=== PATIENT | male | born 1970 | race African-American/Black ===

== ENCOUNTER 2020-08-23 11:08 | Emergency (ER) | payer OTHER ==
--- OUTSIDE RECORDS SUMMARY | 2020-08-23 11:13 | XMS REPORT | Continuity of Care Document ---
:1970 Author Organization [facility] t Address [address] [place] [address] Care Team Providers Name Role Phone Natalie Woods Attending Clinician Problems This patient has no known problems. Allergies, Adverse Reactions, Alerts This patient has no known allergies or adverse reactions. Social History Smoking Status Start Date Stop Date Source Social History [facility] Medications This patient has no known medications. Vital Signs Vital Name Observation Time Observation Value Comments Source Temperature Oral (F) 2019-10-12 14:24:00 97.9 F [facility] Height 2019-10-12 14:24:00 165.1 cm [facility] Weight 2019-10-12 14:24:00 [facility] BMI Calculated 2019-10-12 14:24:00 Memkamille al [place] Systolic (mm Hg) 2019-10-12 14:24:00 Ramana rial [place] Diastolic (mm Hg) 2019-10-12 14:24:00 Mem orial [place] Heart Rate 2019-10-12 14:24:00 [facility] Procedures Procedure Date / Time Performed Performing Clinician Sourc e Back fusion [facility] Encounters Start End Encounter Admission Attending Care Care Encounter Source Date/Time Date/Time Type Type Clinicians Facility Department ID 2019-10-22 2019-10-23 Outpatient [facility] [id number] 09:00:34 09:00:34 01 2019-10-12 2019-10-12 Outpatient JOVANNA Woods [facility] [id number] 08:30:00 23:59:59 Natalie Parra 2019-05-28 2019-05-28 Emergency E [id number] [facility] 00:56:00 00:56:00 Results This patient has no known results.
--- NOTE | 2020-08-23 13:14 | EDPHYS ---
Physician Documentation [facility] Name: James Langford Jr Age: 50 yrs Sex: Male : 1970 Arrival Date: 08/23/2020 Time: 11:12 Bed Treatment Private MD: ED Physician Jose Rafael Daniels HPI: 08/23 13:11 This 50 yrs old Black Male presents to ER via Ambulatory with complaints of Arm Pain. kb 13:11 The patient or guardian complains of pain, that is acute. The complaints affect the kb posterior aspect of left shoulder and left tricep. Context: The problem was sustained at home, resulted from unknown cause. Onset: The symptoms/episode began/occurred yesterday. Treatment prior to arrival includes: no previous treatment. Modifying factors: The symptoms are alleviated by nothing. the symptoms are aggravated by movement of neck. Associated signs and symptoms: Pertinent positives: pain, tingling, Pertinent negatives: decreased range of motion, deformity, erythema, fever, nausea, numbness, swelling, vomiting, warmth, weakness. Severity of symptoms: At their worst the symptoms were moderate, in the emergency department the symptoms are unchanged. The patient has not experienced similar symptoms in the past. The patient has not recently seen a physician. Pt reports he felt a little pain in left posterior neck and left arm yesterday. Woke up this morning with worsening pain and intermittent tingling. States the pain is worse when he turns his neck to the left, pain starts at neck and radiates down arm. Denies injury, decreased ROM, fever, chest pain, shortness of breath.. Historical: - Allergies: 11:25 No Known Allergies; ll1 - PMHx: 11:25 None; ll1 - PSHx: 11:25 back SX x 4; ll1 - Immunization history:: Client reports having NOT received the Covid vaccine. Flu vaccine is up to date. - Social history:: Smoking status: Patient denies any tobacco usage or history of. ROS: 13:09 Constitutional: Negative for fever, chills, and weight loss. kb 13:09 Neck: Positive for pain with movement, tenderness, of the left posterior aspect of neck. 13:09 MS/extremity: Positive for pain, tingling, of the left arm. 13:09 All other systems are negative. Exam: 13:10 Constitutional: This is a well developed, well nourished patient who is awake, alert, kb and in no acute distress. Head/Face: Normocephalic, atraumatic. ENT: Moist Mucous membranes Respiratory: Respirations even and unlabored. No increased work of breathing, no retractions or nasal flaring. Skin: Warm, dry with normal turgor. Normal color. MS/ Extremity: Pulses equal, no cyanosis. Neurovascular intact. Full, normal range of motion. Neuro: Awake and alert, GCS 15, oriented to person, place, time, and situation. Moves all extremities. Normal gait. Psych: Awake, alert, with orientation to person, place and time. Behavior, mood, and affect are within normal limits. 13:10 Neck: External neck: tenderness, that is mild, of the left posterior aspect of neck, C-spine: appears grossly normal, ROM/movement: pain, that is mild, with rotation to the left, Meningeal signs: are not present, nuchal rigidity, is not appreciated. Vital Signs: 11:24 Pulse 68; Resp 16; Temp 97.8; Pulse Ox 98% ; Weight 63.5 kg; Height 5 ft. 5 in. (165.10 ll1 cm); Pain 7/10; 11:24 BP 118 / 77; ll1 11:24 Body Mass Index 23.30 (63.50 kg, 165.10 cm) ll1 MDM: 13:01 Patient medically screened. kb 13:09 Data reviewed: vital signs, nurses notes. Data interpreted: Pulse oximetry: on room air kb is 98 %. Interpretation: normal. Counseling: I had a detailed discussion with the patient and/or guardian regarding: the historical points, exam findings, and any diagnostic results supporting the discharge/admit diagnosis, the need for outpatient follow up, a family practitioner, to return to the emergency department if symptoms worsen or persist or if there are any questions or concerns that arise at home. Administered Medications: 13:24 Drug: SOLU-Medrol (methylPREDNISolone sodium succinate) 125 mg Route: IM; Site: left ss gluteus; 13:56 Follow up: Response: No adverse reaction; Pain is decreased ss Disposition: 15:04 Co-signature as Attending Physician, Jose Rafael Daniels MD. rn Disposition Summary: 08/23/20 13:13 Discharge Ordered Location: Home kb Condition: Stable kb Diagnosis - Radiculopathy, cervical region kb Followup: kb - With: Emergency Department - When: As needed - Reason: Worsening of condition Followup: kb - With: Private Physician - When: 2 - 3 days - Reason: Recheck today's complaints, Continuance of care, Re-evaluation by your physician Discharge Instructions: - Discharge Summary Sheet kb - Pinched Nerve kb - Cervical Radiculopathy, [id number] kb Forms: - Medication Reconciliation Form kb - Thank You Letter kb - Antibiotic Education kb - Prescription Opioid Use kb Prescriptions: - Cyclobenzaprine 10 mg Oral Tablet - take 1 tablet by ORAL route every 8 hours As needed; 21 tablet; Refills: 0, kb Product Selection Permitted - Diclofenac Sodium 75 mg Oral tablet,delayed release (DR/EC) - take 1 tablet by ORAL route 2 times per day As needed; 30 tablet; Refills: 0, kb Product Selection Permitted Signatures: Michelle Kraus, SHOE SHANKER-C SHOE SHANKER-Fernieb Jose Rafael Daniels MD MD rn Smirch, Shelby, RN RN ss Betina Flower RN RN ll1
--- NOTE | 2020-08-23 13:14 | ER ---
Nurse's Notes [facility] Name: James Langford Jr Age: 50 yrs Sex: Male : 1970 Arrival Date: 08/23/2020 Time: 11:12 Bed Treatment Private MD: Diagnosis: Radiculopathy, cervical region Presentation: 08/23 11:24 Chief complaint: Patient states: L arm pain for 2 days. No trauma or falls. Reports ll1 fingers feeling tingly at times. PMS intact. Coronavirus screen: Client denies travel out of the [place] in the last 14 days. At this time, the client does not indicate any symptoms associated with coronavirus-19. Ebola Screen: Patient denies travel to an Ebola-affected area in the 21 days before illness onset. Initial Sepsis Screen: Does the patient meet any 2 criteria? No. Patient's initial sepsis screen is negative. Does the patient have a suspected source of infection? Yes: Bone or joint infection. Risk Assessment: Do you want to hurt yourself or someone else? Patient reports no desire to harm self or others. Onset of symptoms was August 22, 2020. 11:24 Method Of Arrival: Ambulatory ll1 11:24 Acuity: JACQUES 4 ll1 Historical: - Allergies: 11:25 No Known Allergies; ll1 - PMHx: 11:25 None; ll1 - PSHx: 11:25 back SX x 4; ll1 - Immunization history:: Client reports having NOT received the Covid vaccine. Flu vaccine is up to date. - Social history:: Smoking status: Patient denies any tobacco usage or history of. Screenin:00 Abuse screen: Denies threats or abuse. Denies injuries from another. Nutritional ss screening: No deficits noted. Tuberculosis screening: Never had TB. Fall Risk None identified. Assessment: 13:00 General: Appears comfortable, Behavior is calm, cooperative, Denies fever, feeling ill, ss fatigue, chills. Pain: Complains of pain in anterior aspect of right shoulder Pain currently is 7 out of 10 on a pain scale. Quality of pain is described as aching, tender, Pain began 1 day ago. Is continuous. Neuro: Level of Consciousness is awake, alert, obeys commands, Oriented to person, place, time, situation. Cardiovascular: Capillary refill < 3 seconds is brisk in bilateral fingers. Respiratory: Airway is patent Respiratory effort is even, unlabored, Respiratory pattern is regular, symmetrical, Denies cough, shortness of breath. GI: Abdomen is non-distended. EENT: Derm: Skin is intact, is healthy with good turgor, Skin is pink, warm \T\ dry. normal. Musculoskeletal: Circulation, motion, and sensation intact. Range of motion: intact in all extremities, Swelling absent. 13:56 Reassessment: Patient appears in no apparent distress at this time. Patient and/or ss family updated on plan of care and expected duration. Pain level reassessed. Patient is alert, oriented x 3, equal unlabored respirations, skin warm/dry/pink. Patient states feeling better. Patient states symptoms have improved. Vital Signs: 11:24 Pulse 68; Resp 16; Temp 97.8; Pulse Ox 98% ; Weight 63.5 kg; Height 5 ft. 5 in. (165.10 ll1 cm); Pain 7/10; 11:24 BP 118 / 77; ll1 11:24 Body Mass Index 23.30 (63.50 kg, 165.10 cm) ll1 ED Course: 11:12 Patient arrived in ED. mr 11:25 Triage completed. ll1 11:27 Arm band placed on. ll1 12:44 Patient placed in an exam room, on a stretcher. ll1 13:00 Patient has correct armband on for positive identification. Bed in low position. Call ss light in reach. 13:01 Michelle Kraus FNP-C [facility]. kb 13:01 Jose Rafael Daniels MD is Attending Physician. kb 13:55 Shirley Johnson, LOGAN is Primary Nurse. ss 13:55 No provider procedures requiring assistance completed. Patient did not have IV access ss during this emergency room visit. Administered Medications: 13:24 Drug: SOLU-Medrol (methylPREDNISolone sodium succinate) 125 mg Route: IM; Site: left ss gluteus; 13:56 Follow up: Response: No adverse reaction; Pain is decreased ss Outcome: 13:13 Discharge ordered by . kb 13:55 Discharged to home ambulatory. ss 13:55 Condition: good 13:55 Discharge instructions given to patient, Instructed on discharge instructions, follow up and referral plans. medication usage, Demonstrated understanding of instructions, follow-up care, medications, Prescriptions given X 2. 13:56 Patient left the ED. ss Signatures: Michelle Kraus, ESTUARDO-Yuliet MARINATOR-Fernieb Angie Kitchen mr Shirley Johnson, RN RN ss Betina Flower RN RN ll1 Corrections: (The following items were deleted from the chart) 15: 13:00 General: Appears uncomfortable, Behavior is cooperative, anxious, Denies fever, ss feeling ill, fatigue, chills, ss 15:34 13:00 Cardiovascular: Capillary refill < 3 seconds is brisk in bilateral fingers ss ss
[2020-08-23] MEDS ORDERED: METHYLPREDNISOLONE 125 MG INJ ONE (13:40)
[2020-08-23 14:23] VITALS: BP 118/77; TEMP 97.8; O2SAT 98
== END 2020-08-23 13:56 | disposition home or self-care (01) ==
LOC: ER 11:08
DX: M54.12 Radiculopathy, cervical region (principal)
CPT/HCPCS: 96372; 99283; J2930

== ENCOUNTER 2021-01-25 21:05 | Emergency (ER) | payer OTHER ==
--- OUTSIDE RECORDS SUMMARY | 2021-01-25 21:08 | XMS REPORT | Continuity of Care Document ---
:1970 Author Organization [facility] t Address [facility] [address] Care Team Providers Name Role Phone DOMINGO JALLOH Attending Clinician Unavailable Problems This patient has no known problems. Allergies, Adverse Reactions, Alerts This patient has no known allergies or adverse reactions. Medications This patient has no known medications. Procedures This patient has no known procedures. Encounters Start End Encounter Admission Attending Care Care Encounter Source Date/Time Date/Time Type Type Clinicians Facility Department ID 2019-05-28 2019-05-28 Emergency E BRIAN JALLOH SELAM [id number] 00:56:00 03:22:00 DOMINGO Results This patient has no known results.
[2021-01-25] MEDS ORDERED: DIPHENHYDRAMINE 50 MG/ML VIAL ONE (21:57)
--- NOTE | 2021-01-25 22:47 | ER ---
Nurse's Notes [facility] Name: James Langford Jr Age: 51 yrs Sex: Male : 1970 Arrival Date: 01/25/2021 Time: 21:14 Bed 20 Private MD: Diagnosis: Encounter for attention to dressings, sutures and drains Presentation: 01/25 21:22 Chief complaint: Patient states: I had surgery on Tuesday to have a stimulator put in ld1 for my back pain. I called the doctor because I am allergic to the tape on my wound dressing, the doctor would not allow my pull the tape off because he was worried she would pull the wires out. Coronavirus screen: At this time, the client does not indicate any symptoms associated with coronavirus-19. Ebola Screen: No symptoms or risks identified at this time. Initial Sepsis Screen: Does the patient meet any 2 criteria? No. Patient's initial sepsis screen is negative. Does the patient have a suspected source of infection? No. Patient's initial sepsis screen is negative. Risk Assessment: Do you want to hurt yourself or someone else? Patient reports no desire to harm self or others. Onset of symptoms was January 25, 2021. 21:22 Method Of Arrival: Ambulatory ld1 21:22 Acuity: JACQUES 4 ld1 Triage Assessment: 21:24 General: Appears in no apparent distress. comfortable, Behavior is calm, cooperative, ld1 appropriate for age. Pain: Denies pain. EENT: No signs and/or symptoms were reported regarding the EENT system. Neuro: Level of Consciousness is awake, alert, obeys commands, Oriented to person, place, time, situation, Appropriate for age. Cardiovascular: Capillary refill < 3 seconds Patient's skin is warm and dry. Respiratory: Airway is patent Respiratory effort is even, unlabored, Respiratory pattern is regular, symmetrical. GI: Abdomen is flat, non-distended. : No signs and/or symptoms were reported regarding the genitourinary system. Derm: Reports itching, itching around tape on incision site on back. Musculoskeletal: No signs and/or symptoms reported regarding the musculoskeletal system. Historical: - Allergies: 21:24 Tape; ld1 - Home Meds: 21:24 hydrocodone-acetaminophen Oral [Active]; gabapentin oral [Active]; methocarbamol 750 mg ld1 Oral tab 1 tab every 4 hours [Active]; - PMHx: 21:24 Chronic back pain; ld1 - PSHx: 21:24 back SX x 4; Back stimulator; ld1 - Immunization history:: Adult Immunizations up to date, Client reports having NOT received the Covid vaccine. - Social history:: Smoking status: Patient denies any tobacco usage or history of. Patient/guardian denies using alcohol, street drugs. Screenin:38 Abuse screen: Denies threats or abuse. Nutritional screening: No deficits noted. mk Tuberculosis screening: No symptoms or risk factors identified. Fall Risk No fall in past 12 months (0 pts). No secondary diagnosis (0 pts). No IV (0 pts). Ambulatory Aid- None/Bed Rest/Nurse Assist (0 pts). Gait- Normal/Bed Rest/Wheelchair (0 pts) Mental Status- Oriented to own ability (0 pts). Total Porter Fall Scale indicates No Risk (0-24 pts). Assessment: 22:27 General: Appears in no apparent distress. Behavior is calm. Pain: Denies pain. Neuro: mk Level of Consciousness is Oriented to person, place, time, situation, Plastic Eye Technician are equal bilaterally Moves all extremities. Gait is steady, Speech is normal, Facial symmetry appears normal, Pupils are PERRLA, Cardiovascular: Denies shortness of breath, Heart tones S1 S2 Capillary refill < 3 seconds is > 3 seconds fingers toes Pulses are 2+ in right radial artery, right dorsalis pedis artery, left radial artery and left dorsalis pedis artery Rhythm is sinus rhythm. Respiratory: Airway is patent Trachea midline Respiratory effort is even, unlabored, Respiratory pattern is regular, symmetrical, Breath sounds are clear. GI: No signs and/or symptoms were reported involving the gastrointestinal system. Abdomen is flat, non-distended. : No signs and/or symptoms were reported regarding the genitourinary system. Derm: Skin is intact, Skin is dry, Skin is pink, warm \T\ dry. Skin temperature is warm Rash noted that is itchy, on back Reports itching, since 1 day, reports itching to areas where tegaderm was placed after nuerostimulator placed on tuesday. Musculoskeletal: No signs and/or symptoms reported regarding the musculoskeletal system. Range of motion: intact in all extremities. 23:14 Reassessment: Patient appears in no apparent distress at this time. Patient and/or mk family updated on plan of care and expected duration. Pain level reassessed. Patient is alert, oriented x 3, equal unlabored respirations, skin warm/dry/pink. Patient states feeling better. Patient states symptoms have improved. Vital Signs: 21:22 BP 139 / 93; Pulse 66; Resp 18; Temp 97.8(TE); Pulse Ox 100% on R/A; Weight 63.5 kg; ld1 Height 5 ft. 5 in. (165.10 cm); Pain 0/10; 22:26 BP 107 / 64; Pulse 77; Resp 18; Pulse Ox 98% on R/A; mk 23:13 BP 142 / 81; Pulse 66; Resp 18; Pulse Ox 97% on R/A; mk 21:22 Body Mass Index 23.30 (63.50 kg, 165.10 cm) ld1 Albert Coma Score: 22:26 Eye Response: spontaneous(4). Verbal Response: oriented(5). Motor Response: obeys mk commands(6). Total: 15. 23:13 Eye Response: spontaneous(4). Verbal Response: oriented(5). Motor Response: obeys mk commands(6). Total: 15. ED Course: 21:14 Patient arrived in ED. ja2 21:24 Triage completed. ld1 21:24 Arm band placed on right wrist. ld1 21:34 David Santizo NP is PHCP. pm1 21:34 Paddy Daniel MD is Attending Physician. pm1 21:42 Shavon Carl, RN is Primary Nurse. mk 22:38 assessment of wound/dressing. mk 22:40 Patient has correct armband on for positive identification. Bed in low position. Call mk light in reach. Side rails up X 1. 23:14 Patient did not have IV access during this emergency room visit. Administered Medications: 22:26 Drug: Benadryl (diphenhydrAMINE) 50 mg Route: IM; Site: left deltoid; mk 23:14 Follow up: Response: No adverse reaction; Marked relief of symptoms mk Outcome: 22:46 Discharge ordered by . pm1 23:14 Discharged to home with family. mk 23:14 Condition: good 23:14 Discharge instructions given to patient, family. 23:15 Patient left the ED. mk Signatures: David Santizo, JOSE AUTOMATION SPECIALIST pm1 Henna Jefferson RN RN ld1 Masha Haddad Madeline, LOGAN marin
--- NOTE | 2021-01-25 22:47 | EDPHYS ---
Physician Documentation [facility] Name: James Langford Jr Age: 51 yrs Sex: Male : 1970 Arrival Date: 01/25/2021 Time: 21:14 Bed 20 Private MD: ED Physician Paddy Daniel HPI: 01/25 21:56 This 51 yrs old Black Male presents to ER via Ambulatory with complaints of POST pm1 SURGICAL BANDAGE IRRATION. 21:56 Onset: The symptoms/episode began/occurred today. Associated signs and symptoms: pm1 Pertinent negatives: fever, Redness, discharge, drainage. Modifying factors: the patient symptoms are aggravated by Surgical tape and bandage. The patient has not experienced similar symptoms in the past. The patient has been recently seen by a physician: Neurostimulator placed to low back due to chronic pain. Patient presenting to the ER with complaints of irritation from dressing and bandage from surgery on Tuesday. Contacted his physician with request to remove the tape and was instructed to go to the ER for evaluation and treatment. Historical: - Allergies: 21:24 Tape; ld1 - Home Meds: 21:24 hydrocodone-acetaminophen Oral [Active]; gabapentin oral [Active]; methocarbamol 750 mg ld1 Oral tab 1 tab every 4 hours [Active]; - PMHx: 21:24 Chronic back pain; ld1 - PSHx: 21:24 back SX x 4; Back stimulator; ld1 - Immunization history:: Adult Immunizations up to date, Client reports having NOT received the Covid vaccine. - Social history:: Smoking status: Patient denies any tobacco usage or history of. Patient/guardian denies using alcohol, street drugs. ROS: 21:56 Constitutional: Negative for fever, chills, and weight loss, Cardiovascular: Negative pm1 for chest pain, palpitations, and edema, Respiratory: Negative for shortness of breath, cough, wheezing, and pleuritic chest pain, MS/Extremity: Negative for injury and deformity. 21:56 Abdomen/GI: Negative for abdominal pain, nausea, vomiting, diarrhea, and constipation, Neuro: Negative for headache, weakness, numbness, tingling, and seizure. 21:56 Skin: Positive for of the low back area, Itching. 21:56 All other systems are negative. pm1 Exam: 21:56 Constitutional: This is a well developed, well nourished patient who is awake, alert, pm1 and in no acute distress. Head/Face: Normocephalic, atraumatic. 21:56 Skin: Warm, dry with normal turgor. Normal color with no rashes, no lesions, and no evidence of cellulitis. MS/ Extremity: Pulses equal, no cyanosis. Neurovascular intact. Full, normal range of motion. 21:56 Cardiovascular: Exam negative for acute changes, Rate: normal, Rhythm: regular, Pulses: no pulse deficits are appreciated, Heart sounds: normal. 21:56 Respiratory: Exam negative for acute changes, respiratory distress, shortness of breath. 21:56 Abdomen/GI: Inspection: abdomen appears normal, Palpation: abdomen is soft and non-tender, in all quadrants. 21:56 Neuro: Exam negative for acute changes, Orientation: is normal, Mentation: is normal, Motor: is normal, moves all fours. Vital Signs: 21:22 BP 139 / 93; Pulse 66; Resp 18; Temp 97.8(TE); Pulse Ox 100% on R/A; Weight 63.5 kg; ld1 Height 5 ft. 5 in. (165.10 cm); Pain 0/10; 22:26 BP 107 / 64; Pulse 77; Resp 18; Pulse Ox 98% on R/A; mk 23:13 BP 142 / 81; Pulse 66; Resp 18; Pulse Ox 97% on R/A; mk 21:22 Body Mass Index 23.30 (63.50 kg, 165.10 cm) ld1 Albert Coma Score: 22:26 Eye Response: spontaneous(4). Verbal Response: oriented(5). Motor Response: obeys mk commands(6). Total: 15. 23:13 Eye Response: spontaneous(4). Verbal Response: oriented(5). Motor Response: obeys mk commands(6). Total: 15. MDM: 21:46 Patient medically screened. pm1 22:34 Data reviewed: vital signs. Data interpreted: Pulse oximetry: on room air is 98 %. pm1 Interpretation: normal. 22:34 ED course: Patient without any rash or skin irritation present to surgical area. No pm1 signs of cellulitis present. Tegaderm dressing intact. Outer cloth-tape dressing loose at the edges. Those loose edge were removed, adhesive on skin cleansed, and outer tape replaced to protect Tegaderm dressing. Patient reports improvement with Benadryl in ED and dressing change applied. 22:34 Counseling: I had a detailed discussion with the patient and/or guardian regarding: the pm1 historical points, exam findings, and any diagnostic results supporting the discharge/admit diagnosis, the need for outpatient follow up, a neurosurgeon, Patient has follow up appointment on Tuesday or per patient and . He is called daily for stimulator settings adjustment. Administered Medications: 22:26 Drug: Benadryl (diphenhydrAMINE) 50 mg Route: IM; Site: left deltoid; 23:14 Follow up: Response: No adverse reaction; Marked relief of symptoms Disposition: 01/26 04:01 Co-signature as Attending Physician, Paddy Daniel MD. [facility] Disposition Summary: 01/25/21 22:46 Discharge Ordered Location: Home pm1 Problem: new pm1 Symptoms: have improved pm1 Condition: Stable pm1 Diagnosis - Encounter for attention to dressings, sutures and drains pm1 Followup: pm1 - With: Emergency Department - When: As needed - Reason: Worsening of condition Followup: pm1 - With: Private Physician - When: 2 - 3 days - Reason: Recheck today's complaints, Continuance of care, Re-evaluation by your physician Forms: - Medication Reconciliation Form pm1 - Thank You Letter pm1 - Antibiotic Education pm1 - Prescription Opioid Use pm1 Signatures: David Santizo, FITTER TYPE BAR AND SEGMENT FITTER TYPE BAR AND SEGMENT pm1 Paddy Daniel MD MD [facility] Henna Jefferson RN RN 1 Shavon Carl RN RN Corrections: (The following items were deleted from the chart) 01/25 22:43 22:34 ED course: Patient without any rash or skin irritation present to surgical area. pm1 No signs of cellulitis present. Tegaderm dressing intact. Outer cloth-tape dressing loose at the edges. Those loose edge were removed, adhesive on skin cleansed, and outer tape replaced to protect Tegaderm dressing. pm1
[2021-01-25 23:21] VITALS: TEMP 97.8
[2021-01-25 23:25] VITALS: BP 142/81; O2SAT 97
== END 2021-01-25 23:15 | disposition home or self-care (01) ==
LOC: ER 21:05
DX: Z48.01 Encounter for change or removal of surgical wound dressing (principal)
CPT/HCPCS: 96372; 99284; J1200